=== PATIENT | female | born 1935 | race Two or more races ===

== ENCOUNTER 2017-10-16 11:04 | Day surgery (SDC) | payer MEDICAID ==
[~2017-10-16] VITALS: Ht 154.9 cm; Wt 54.9 kg
[~2017-10-16 11:04] MED LIST: ALEN70SO3 PO; CALC-1098 PO; DONE5TAB33 PO; GLUC100017 PO; NAPR-681 PO
[2017-10-16] MEDS ORDERED: LACTATED RINGERS 1,000 ML IV SCH (11:45)
[2017-10-16] MEDS ORDERED: TRIAMCINOLONE ACETONIDE 40MG/ML 1ML VIAL ONE (12:39)
[2017-10-16] MEDS ORDERED: GENTAMICIN SULF 40MG/ML 2ML VIAL ONE (12:40)
[2017-10-16] MEDS ORDERED: DEXAMETHASONE 4MG/ML 1ML VIAL ONE (12:40)
[2017-10-16] MEDS ORDERED: LIDOCAINE HCL/PF 1% 10 MG/ML 5ML VIAL ONE ×2 (12:40→13:37)
[2017-10-16] MEDS ORDERED: BUPIVACAINE HCL/PF 0.5% (5MG/ML) 10ML ONE (12:41)
[2017-10-16] MEDS ORDERED: FENTANYL CITRATE/PF 50MCG/ML 2ML VIAL ONE (13:36)
[2017-10-16] MEDS ORDERED: GLYCOPYRROLATE 0.2 MG/ML 2ML VIAL ONE (13:36)
[2017-10-16] MEDS ORDERED: PROPOFOL 200MG/20ML VIAL IV ONE (13:36)
[2017-10-16] MEDS ORDERED: MIDAZOLAM HCL 2 MG/2 ML VIAL ONE (13:36)
[2017-10-16] MEDS ORDERED: SUCCINYLCHOLINE CHLORIDE 200MG/10ML VIAL IV ONE ×2 (13:37→13:41)
[2017-10-16] MEDS ORDERED: METOCLOPRAMIDE HCL 10MG/2ML VIAL ONE (13:37)
[2017-10-16] MEDS ORDERED: ONDANSETRON HCL 4MG/2ML VIAL ONE (13:37)
[2017-10-16] MEDS ORDERED: PROPOFOL 10MG/ML 100ML 100 ML IV ONE (13:53)
[2017-10-16] MEDS ORDERED: BACITRACIN ZINC 15GM TUBE TOP ONE (14:57)
[2017-10-16] MEDS ORDERED: ONDANSETRON HCL 4MG/2ML VIAL IV NR (15:45)
[2017-10-16] MEDS ORDERED: MEPERIDINE HCL/PF 25MG/ML CPJ IV NR (15:45)
== END 2017-10-16 17:45 | disposition home or self-care (01) ==
LOC: OR 11:04
PROVIDERS: ATTEND Podiatrist Foot & Ankle Surgery
DX: M20.41 Other hammer toe(s) (acquired), right foot (principal); M19.071 Primary osteoarthritis, right ankle and foot; Z79.899 Other long term (current) drug therapy; Z90.710 Acquired absence of both cervix and uterus
CPT/HCPCS: 28285; 73630; 88305; 88311; 97116; 97161; J0330; J1100; J1580; J2250; J2405; J2704; J2765; J3010; J3301; J3490; J7120